=== PATIENT | male | born 1940 | race Caucasian/White ===

== ENCOUNTER 2017-11-18 09:54 | Outpatient (CLI) | payer MEDICARE, OTHER | END 2017-11-18 23:59 | disposition home or self-care (01) | LOC: RAD 09:54 | PROVIDERS: ATTEND Specialist | DX: G40.802 Other epilepsy, not intractable, without status epilepticus (principal); I63.9 Cerebral infarction, unspecified; R58 Hemorrhage, not elsewhere classified; I10 Essential (primary) hypertension; F17.200 Nicotine dependence, unspecified, uncomplicated; Z86.79 Personal history of other diseases of the circulatory system | CPT/HCPCS: 95816 ==